=== PATIENT | male | born 1970 | race Two or more races ===

== ENCOUNTER 2019-10-17 12:15 | Outpatient (CLI) | payer OTHER | END 2019-10-17 12:21 | disposition home or self-care (01) | LOC: RAD 12:15 | DX: M79.641 Pain in right hand (principal) ==

== ENCOUNTER 2019-11-14 09:44 | Outpatient (CLI) | payer OTHER | END 2019-11-14 09:50 | disposition home or self-care (01) | LOC: RAD 09:44 | DX: M24.541 Contracture, right hand (principal) ==

== ENCOUNTER → 2020-01-20 14:44 | Outpatient (CLI) | payer OTHER | END | disposition home or self-care (01) | LOC: RAD 14:44 | DX: M79.641 Pain in right hand (principal) ==

== ENCOUNTER → 2020-04-15 | Outpatient (CLI) | payer OTHER | END | disposition home or self-care (01) | LOC: RAD 13:33 | PROVIDERS: ATTEND Physical Medicine & Rehabilitation | DX: M75.31 Calcific tendinitis of right shoulder (principal); M75.32 Calcific tendinitis of left shoulder ==

== ENCOUNTER 2021-08-02 08:00 | Outpatient (CLI) | payer OTHER | END 2021-08-02 08:30 | disposition home or self-care (01) | LOC: PPH VACUNA 08:00 | PROVIDERS: ATTEND Emergency Medicine Pediatric Emergency Medicine | DX: Z23 Encounter for immunization (principal) ==

== ENCOUNTER 2021-10-17 20:48 | Emergency (ER) | payer OTHER ==
[~2021-10-17] VITALS: Ht 177.8 cm; Wt 74.8 kg
[2021-10-17] MEDS ORDERED: NAPROXEN375 MG PO (21:38)
[2021-10-17] MEDS ORDERED: BACTRIM DS TAB1 EACH PO (21:38)
== END 2021-10-17 21:42 | disposition home or self-care (01) ==
LOC: ER 20:48
DX: S91.331A Puncture wound without foreign body, right foot, initial encounter (principal); W45.0XXA Nail entering through skin, initial encounter; Y93.9 Activity, unspecified; Y92.9 Unspecified place or not applicable; Y99.9 Unspecified external cause status

== ENCOUNTER 2021-12-30 08:00 | Outpatient (CLI) | payer OTHER ==
[~2021-12-30 08:00] MED LIST: BACTRIM DS TAB1 EACH PO; NAPROXEN375 MG PO
== END 2021-12-30 08:30 | disposition home or self-care (01) ==
LOC: PPH VACUNA 08:00
PROVIDERS: ATTEND Emergency Medicine Pediatric Emergency Medicine
DX: Z23 Encounter for immunization (principal)

== ENCOUNTER 2022-02-07 15:03 | Outpatient (CLI) | payer OTHER | END 2022-02-07 15:11 | disposition home or self-care (01) | LOC: RAD 15:03 | DX: R07.89 Other chest pain (principal) ==

== ENCOUNTER 2022-02-13 09:12 | Outpatient (CLI) | payer OTHER | END 2022-02-13 09:23 | disposition home or self-care (01) | LOC: LAB 09:12 | DX: E11.9 Type 2 diabetes mellitus without complications (principal); D68.9 Coagulation defect, unspecified; N39.0 Urinary tract infection, site not specified ==

== ENCOUNTER 2024-10-25 12:21 | Emergency (ER) | payer OTHER ==
[~2024-10-25] VITALS: Ht 177.8 cm; Wt 70.3 kg
[~2024-10-25 12:21] MED LIST changes: +CIPRO500 MG PO; +INTESTINEX680 M2 PO; +PEPCID AC20 MG PO
[2024-10-25] MEDS ORDERED: LIDOCAINE HCL 1% 10ML VIAL PERCUT ONE (14:30)
[2024-10-25] MEDS ORDERED: FAMOTIDINE/PF 20 MG/2 ML VIAL IV ONE (14:30)
[2024-10-25] MEDS ORDERED: 0.9 % SODIUM CHLORIDE 1,000 ML IV ONE (14:30)
[2024-10-25] MEDS ORDERED: LACTOBACILLUS ACIDOPHILUS 1 CAP CAP PO ONE ×2 (14:30→14:31)
[2024-10-25] MEDS ORDERED: LIDOCAINE HCL 1% 10ML VIAL ONE (14:31)
[2024-10-25] MEDS ORDERED: FAMOTIDINE/PF 20 MG/2 ML VIAL ONE (14:31)
[2024-10-25 15:09] LABS: HEMATOCRIT 43.8 % (39.0-48.0); HEMOGLOBIN 15.1 g/dL (13-16.00); MEAN CELL VOLUME 90.4 fL (80.0-100.00); MEAN CORPUSCULAR HEMOGLOBIN 31.2 pg (27.00-32.0); MEAN CORPUSCULAR HGB CONC 34.6 g/dl (32.0-36.0); PLATELET COUNT 249 K/uL (150-450); RED BLOOD COUNT 4.85 M/uL (4.00-6.00); RED CELL DISTRIBUTION WIDTH 12.6 % (11.5-14.5)
[2024-10-25 15:52] LABS: ALBUMIN 4.1 gm/dL (3.4-5.0); BILIRUBIN TOTAL 1.03 mg/dL (0.3-1.2); CALCIUM 8.9 mg/dL (8.5-10.1); CREATININE SERUM 0.73 mg/dL (0.70-1.30); GFR 111.55; GLOBULINA 3.8 G/DL (2.4-3.5); POTASSIUM 3.8 mEq/L (3.5-5.1); TOTAL PROTEIN 7.9 gm/dL (6.4-8.2)
[2024-10-25 15:55] LABS: PH,URINE 5.5 (5.0-8.0); URINE APPEARANCE Clear; URINE BILIRRUBIN Negative (NEGATIVE); URINE BLOOD Negative; URINE COLOR Dark Yellow; URINE KETONE Trace (NEGATIVE); URINE LEUKOCYTE Negative; URINE NITRATE Negative; URINE PROTEIN 30 (NEGATIVE)
[2024-10-25 16:41] LABS: URINE BACTERIA 29.3 uL (0.0-1933); URINE EPITHELIAL CELLS 11.2 uL (0.0-38.8); URINE RBC 6.9 uL (0.0-20.8); URINE WBC 30.8 uL (0.0-23.2)
[2024-10-25 16:59] LABS: URINE CAST 0.44 uL (0.0-1.40); URINE GLUCOSE 100 MG/DL (NEGATIVE)
[2024-10-25 17:00] LABS: URINE MUCUS HEAVY
[2024-10-25] MEDS ORDERED: INTESTINEX680 M1 PO (18:19)
== END 2024-10-25 19:08 ==
LOC: ER 12:23
PROVIDERS: General Practice
DX: S01.121A Laceration with foreign body of right eyelid and periocular area, initial encounter (principal); W18.39XA Other fall on same level, initial encounter; Y93.89 Activity, other specified; Y92.018 Other place in single-family (private) house as the place of occurrence of the external cause; K52.89 Other specified noninfective gastroenteritis and colitis
CPT/HCPCS: 12013; 36415; 70450; 71046; 93005 ×2; 96365; 96366; 99284; J3490; J7030

== ENCOUNTER 2024-10-30 10:55 | Emergency (ER) | payer OTHER ==
[~2024-10-30] VITALS: Ht 177.8 cm; Wt 72.6 kg
[~2024-10-30 10:55] MED LIST changes: +INTESTINEX680 M1 PO
== END 2024-10-30 12:07 | disposition home or self-care (01) ==
LOC: ER 10:58
DX: Z48.02 Encounter for removal of sutures (principal)